=== PATIENT | female | born 1975 | race Caucasian/White ===

== ENCOUNTER 2023-07-24 04:13 | Day surgery (SDC) | payer BC ==
[2023-07-12 15:46] VITALS: BMI 30.2
[~2023-07-24 04:13] MED LIST: BUPIVACAINE HCL/PF 0.5% (5MG/ML) 10 ML VIAL IJ ONE
[2023-07-24] MEDS ORDERED: MIDAZOLAM HCL 2 MG/2 ML SINGLE DOSE VIAL ONE (09:24)
[2023-07-24] MEDS ORDERED: ONDANSETRON 4 MG/2 ML VIAL ONE ×2 (09:47→10:17)
[2023-07-24] MEDS ORDERED: DEXAMETHASONE SOD PHOSPHATE 4 MG/1 ML VIAL ONE (09:47)
[2023-07-24] MEDS ORDERED: ceFAZolin SODIUM 1 GM VIAL IVPB ONE (09:50)
[2023-07-24] MEDS ORDERED: ceFAZolin SODIUM 1 GM VIAL ONE (09:52)
[2023-07-24] MEDS ORDERED: KETOROLAC TROMETHAMINE 30 MG/1 ML VIAL ONE (10:16)
[2023-07-24] MEDS ORDERED: NEOSTIGMINE METHYLSULFATE 0.5 MG/1 ML - 10 ML MDV ONE (10:17)
[2023-07-24] MEDS ORDERED: GLYCOPYRROLATE 0.2 MG/1 ML VIAL ONE (10:17)
[2023-07-24] MEDS ORDERED: oxyCODONE HCL 5 MG TABLET PO PRN (10:48)
[2023-07-24] MEDS ORDERED: ONDANSETRON 4 MG/2 ML VIAL IVPUSH PRN (10:48)
[2023-07-24] MEDS ORDERED: LACTATED RINGERS SOLUTION 1,000 ML IV SCH (11:00)
[2023-07-24 12:35] VITALS: RESP 20
[2023-07-24 15:01] VITALS: BP 110/70; PULSE 70; TEMP 97
== END 2023-07-24 14:55 | disposition home or self-care (01) ==
LOC: JASU-SURG 04:13
PROVIDERS: ATTEND Obstetrics & Gynecology
PROC: 0UT74ZZ Resection of Bilateral Fallopian Tubes, Percutaneous Endoscopic Approach (ICD-10-PCS; principal; 2023-07-24 10:30)
PROC: 0UBC8ZZ Excision of Cervix, Via Natural or Artificial Opening Endoscopic (ICD-10-PCS; 2023-07-24 10:30)
PROC: 0UB98ZZ Excision of Uterus, Via Natural or Artificial Opening Endoscopic (ICD-10-PCS; 2023-07-24 10:30)
DX: N70.91 Salpingitis, unspecified (principal); N84.1 Polyp of cervix uteri; N84.0 Polyp of corpus uteri; N83.8 Other noninflammatory disorders of ovary, fallopian tube and broad ligament
CPT/HCPCS: 81025; 88305-TC; 93005; 93010; 94760